=== PATIENT | female | born 1970 | race Caucasian/White ===

== ENCOUNTER 2019-04-20 18:30 | Inpatient (IN) | payer BC ==
[~2019-04-20] VITALS: Ht 172.7 cm; Wt 98.4 kg
--- NOTE | 2019-04-20 18:30 | NUR ---
PT BIBA BLS TO ER BED 03
[2019-04-20 18:43] VITALS: BP 160/95
--- NOTE | 2019-04-20 18:55 | NUR ---
PT DENIES SHORTNESS OF BREATH AND REFUSES TO USE OXYGEN. O2 SATS 98% AT THIS TIME.
--- NOTE | 2019-04-20 18:56 | NUR ---
PT BIBA FROM URGENT CARE C/O MIDSTERNAL PRESSURE PAIN. PT REPORTS PAIN SUBSIDED 30MIN AGO, CP STARTED WHILE GARDENING AND LASTED ABOUT 2 HOURS, AND WAS ACCOMPANIED BY NAUSEA. DENIES SOB. DENIES VOMITING OR DIARRHEA; SKIN IS PINK/WARM/DRY; AAOX4 WITH EVEN AND STEADY GAIT; HR EVEN AND REGULAR; PT DENIES ANY FEVER, CP, SOB, OR COUGH AT THIS TIME; PATIENT STATES PAIN OF 0/10 AT THIS TIME; VSS; PATIENT POSITIONED FOR COMFORT; HOB ELEVATED; BEDRAILS UP X2; BED DOWN. ER MD MADE AWARE OF PT STATUS.
[2019-04-20 19:11] LABS: BASOPHILS % (AUTO) 0.6 % (0.0-2.0); EOSINOPHILS % (AUTO) 0.4 % (0.0-4.0); HEMATOCRIT 47.2 % (36-48); HEMOGLOBIN 16.1 g/dL (12.0-16.0); LYMPHOCYTES # (AUTO) 1.6 K/uL (2.5-16.5); LYMPHOCYTES % (AUTO) 25.3 % (20.5-51.1); MEAN CORPUSCULAR HEMOGLOBIN 30 pg (27-31); MEAN CORPUSCULAR HGB CONC 34 g/dL (33-37); MEAN CORPUSCULAR VOLUME 88.7 fL (80-94); MONOCYTES # (AUTO) 0.5 K/uL (0.8-1.0); MONOCYTES % (AUTO) 8.5 % (1.7-9.3); NEUTROPHILS # (AUTO) 4.2 K/uL (1.8-7.7); NEUTROPHILS % (AUTO) 65.2 % (42.2-75.2); PLATELET COUNT (AUTO) 237 K/uL (140-450); RED BLOOD CELL COUNT(AUTO) 5.32 MIL/uL (4.20-5.40); RED CELL DISTRIBUTION WIDTH 13.1 % (11.6-13.7); WHITE BLOOD COUNT (AUTO) 6.5 K/uL (4.8-10.8)
--- NOTE | 2019-04-20 19:12 | NUR ---
DR. ORTA AT BEDSIDE.
--- NOTE | 2019-04-20 19:20 | NUR ---
PT STATES SHE HAS A 2/10 PRESSURE HEADACHE.
[2019-04-20 19:22] LABS: BARBITURATE, URINE NEG. ng/ml (NEG <=200); BENZODIAZEPINE, URINE NEG. ng/mL (NEG <=200); CANNABINOID, URINE NEG. ng/mL (NEG <=50); COCAINE, URINE NEG. ng/mL (NEG <=300); OPIATE, URINE NEG. ng/mL (NEG <=2000); PHENCYCLIDINE SCREEN,URINE NEG. ng/mL (NEG <=25)
[2019-04-20 19:28] LABS: PROTHROMBIN TIME 9.3 secs (10.8-13.4)
[2019-04-20] MEDS ORDERED: ASPIRIN 325 MG TAB PO ONE (19:30)
[2019-04-20] MEDS ORDERED: NACL 0.9% 1,000 ML IV ONE (19:30)
[2019-04-20 19:34] LABS: MAGNESIUM 1.9 mg/dL (1.8-2.4)
--- NOTE | 2019-04-20 20:05 | NUR ---
Critical lab results: Troponin 10.631; Glucose 456. MADE AWARE.
--- NOTE | 2019-04-20 20:05 | NUR ---
Oniel marquis in ED - 04/20/19 at 2010 by MED Critical lab results: Troponin 10.721; Glucose 456.
[2019-04-20 20:06] LABS: ANION GAP 12.4 (8-16); CARBON DIOXIDE 27.5 mmol/L (21-32); POTASSIUM 3.9 mmol/L (3.5-5.1)
[2019-04-20 20:07] LABS: CREATININE 0.9 mg/dL (0.6-1.3); TOTAL BILIRUBIN 0.5 mg/dL (0.0-1.0)
[2019-04-20 20:08] LABS: ALBUMIN 3.8 g/dL (3.4-5.0)
[2019-04-20 20:15] LABS: D-DIMER < 100 ng/ml (0-400)
--- NOTE | 2019-04-20 20:20 | NUR ---
EKG PERFORMED AT BEDSIDE
[2019-04-20] MEDS ORDERED: hePARIN / DEXT 5% PREMIX 250 ML IV ONE (20:30)
[2019-04-20] MEDS ORDERED: HEPARIN PER PHARMACY MC STA (20:30)
[2019-04-20] MEDS ORDERED: DOCUSATE SODIUM 100 MG GELCAP PO PRN (20:35)
[2019-04-20] MEDS ORDERED: ZOLPIDEM 5 MG TAB PO PRN (20:35)
[2019-04-20] MEDS ORDERED: ONDANSETRON 4 MG/2 ML VIAL IM/IVP PRN (20:35)
[2019-04-20] MEDS ORDERED: HYDROcodone/APAP 5/325 MG 1 TAB TAB PO PRN (20:35)
[2019-04-20] MEDS ORDERED: MORPHINE SULFATE 2 MG/ML SYR IVP PRN (20:35)
[2019-04-20 20:55] LABS: APPEARANCE,URINE CLEAR (CLEAR); BILIRUBIN,URINE NEGATIVE (NEGATIVE); BLOOD, URINE 1+ (NEGATIVE); COLOR,URINE YELLOW (YELLOW); LEUKOCYTE ESTERASE ,URINE NEGATIVE (NEGATIVE); NITRITE, URINE NEGATIVE (NEGATIVE); UGLUCOSE 3+ (NEGATIVE)
[2019-04-20 21:10] LABS: WBC,URINE 0-5 /HPF (0-5)
[2019-04-20 21:11] LABS: RBC,URINE >20 (MANY) /HPF (0-5)
[2019-04-20 21:12] LABS: CHOL/HDL RATIO 8.8 (1-4.5); MAGNESIUM 1.9 mg/dL (1.8-2.4); PHOSPHORUS 4.2 mg/dL (2.5-4.9); THYROID STIMULATING HORMONE 4.45 uIU/mL (0.34-3.74)
[2019-04-20] MEDS ORDERED: DEXTROSE 50% 50 ML SYR IVP PRN (21:15)
[2019-04-20] MEDS ORDERED: NITROGLYCERIN 0.4 MG TAB SL PRN (21:15)
--- NOTE | 2019-04-20 21:20 | NUR ---
Patient will be admitted to care of chest pain and evalated Troponin 10.631. Admited to Telemetry. Will go to room 119B. Belongings list completed. Report to MELI Little.
--- NOTE | 2019-04-20 21:20 | NUR ---
RECEIVED REPORT FROM ER NURSE. PT AWAKE, ALERT AND ORIENTED X4. ABLE TO VERBALIZE NEEDS. PT HAS RIGHT A/C 20 G INTACT AND PATENT. PT ABLE TO AMBULATE FROM GURNEY TO BED. PT GAIT STEADY. NO C/O CHEST PAIN OR DISCOMFORT. BREATHING EQUAL AND UNLABORED. SAFETY PRECAUTIONS IN PLACE. PT ORIENTED ON HOW TO USE CALL LIGHT. CALL LIGHT WITHIN REACH.
[2019-04-20] MEDS ORDERED: ATORVASTATIN 20 MG TAB PO ONE (21:25)
[2019-04-20] MEDS ORDERED: METOPROLOL 25 MG TAB PO ONE (21:30)
[2019-04-20] MEDS ORDERED: metFORMIN 850 MG TAB PO ONE (21:30)
--- NOTE | 2019-04-20 22:15 | NUR ---
CALLED PHARMACY AT [facility] REGARDING PTS HEPARIN ORDERS. INFORMED THAT ORDERS WERE FROM ER AND WOULD NEED NEW ORDERS FROM INPATIENT. RESIDENT MD INFORMED.
[2019-04-20] MEDS ORDERED: HEPARIN PER PHARMACY MC PRN (22:20)
[2019-04-20] MEDS ORDERED: hePARIN / DEXT 5% PREMIX 250 ML IV SCH (22:20)
[2019-04-20] MEDS: NACL 0.9% 1,000 ML IV SCH (22:28)
[2019-04-20] MEDS: hePARIN / DEXT 5% PREMIX 250 ML IV SCH (23:06)
--- NOTE | 2019-04-20 23:06 | NUR ---
HEPARIN STARTED PER ORDERS
[2019-04-20] MEDS: ACETAMINOPHEN 325 MG TAB PO PRN (23:28)
[2019-04-21] VITALS: BP 133/82
--- NOTE | 2019-04-21 01:00 | NUR ---
ROUNDED ON PT. PT SLEEPING, NO VISIBLE SIGNS OF DISTRESS. BREATHING EQUAL AND UNLABORED. CALL LIGHT WITHIN REACH.
[2019-04-21] MEDS: INSULIN LISPRO SLIDING SCALE 100 UNITS/ML VIAL SUBQ PRN ×2 (02:48→05:49)
--- NOTE | 2019-04-21 02:48 | NUR ---
PT C/O DRY MOUTH. BLOOD GLUCOSE TAKEN 272 AT THIS TIME. MEDICATED WITH 6UNITS INSULIN PER ORDERS
[2019-04-21 05:36] LABS: PROTHROMBIN TIME 9.8 secs (10.8-13.4)
[2019-04-21 06:15] LABS: CHOL/HDL RATIO 8.6 (1-4.5)
[2019-04-21 06:16] LABS: ANION GAP 12.1 (8-16); CARBON DIOXIDE 24.5 mmol/L (21-32); CREATININE 0.8 mg/dL (0.6-1.3); POTASSIUM 3.6 mmol/L (3.5-5.1)
[2019-04-21] MEDS: hePARIN / DEXT 5% PREMIX 250 ML IV SCH (06:38)
[2019-04-21] MEDS: NACL 0.9% 1,000 ML IV SCH (06:45)
[2019-04-21] MEDS: BLOOD GLUCOSE MONITORING 1 DEV DEV FS SCH ×2 (06:46→12:23)
--- NOTE | 2019-04-21 07:35 | NUR ---
PATIENT RESTING IN BED, ABDOMINAL ULTRASOUND JUST FINISHED. PATIENT ALERT AND ORIENTED, WITH CLEAR SPEECH AND NO SIGNS OF DISTRESS ON RA. PATIENT RECEIVING HEPARIN DRIP TO RIGHT HAND 22 GAUGE CATHETER. SITE IS CLEAR OF SIGNS OF INFILTRATION OR IRRITATION. DRESSING CLEAN DRY AND INTACT. NO SIGNS OF BLEEDING. NORMAL SALINE RUNNING AT 100 ML AND HOUR TO RIGHT AC 20 GAUGE. SAFETY PRECAUTIONS ARE IN PLACE, CALL LIGHT WITHIN REACH. PATIENT UPDATED ON PLAN OF CARE. PATIENT C/O 4/10 JAW AND HEAD PAIN. WILL MEDICATE WITH TYLENOL.
[2019-04-21 08:00] VITALS: BP 129/84
[2019-04-21] MEDS ORDERED: metFORMIN 850 MG TAB PO SCH (08:00)
[2019-04-21] MEDS ORDERED: METOPROLOL 25 MG TAB PO SCH (09:00)
[2019-04-21] MEDS ORDERED: ECOTRIN 81 MG TABEC PO SCH (09:00)
[2019-04-21] MEDS ORDERED: ATORVASTATIN 20 MG TAB PO SCH (09:00)
[2019-04-21] MEDS ORDERED: LISINOPRIL 5 MG TAB PO SCH (09:00)
--- NOTE | 2019-04-21 09:00 | NUR ---
ADMINISTERED SCHEDULED MEDICATIONS. HELD METFORMIN DUE TO PENDING CARDIAC CATHETERIZATION SCHEDULED FOR TODAY AT RECEIVING FACILITY. PATIENT TO BE TRANSFERRED TO [facility], [place]. VITALS STABLE. NO SIGNS OF DISTRESS ON RA. PATIENT C/O 2/[address] DIAZ. ADMINISTERED 1MG MORPHINE IV PER DOCTOR ORDERS FOR CHEST PAIN. PATIENT C/O 4/10 HEADACHE BUT WILL WAIT TO SEE IF THE PAIN SUBSIDES AFTER THE MORPHINE ADMINISTRATION.
--- NOTE | 2019-04-21 09:00 | NUR ---
ADMINISTERED SCHEDULED MEDICATIONS WITH THE EXCEPTION OF METFORMIN. METFORMIN HELD. PATIENT PENDING TRANSFER TO [facility] FOR CARDIAC CATHETERIZATION. ADMINISTERED 1MG MORPHINE IV FOR CHEST PAIN 12/21, ONE TIME DOSE ORDERED BY DR. GRIGSBY. PATIENT TOLERATED MEDICATIONS WELL.
[2019-04-21] MEDS ORDERED: MORPHINE SULFATE 2 MG/ML SYR IVP SCH (09:01)
--- NOTE | 2019-04-21 09:16 | NUR ---
PATIENT HAS BEEN SCREENED AND CATEGORIZED MODERATE NUTRITION RISK. PATIENT WILL BE SEEN WITHIN 3-5 DAYS OF ADMISSION. 04/23/[address]
[2019-04-21] MEDS ORDERED: ATOR20TA40 PO (10:15)
[2019-04-21] MEDS ORDERED: METO25TA PO (10:15)
--- NOTE | 2019-04-21 10:30 | NUR ---
CALLED [facility] [phone] SPOKE WITH THE CM SAMANTHA BARAJAS NOTIFIED THAT PT NEEDS TO GO TO [facility] FOR CARDIAC CATH. FAXED ALL REQUEST AND INFO TO FAX # [phone] PER SAMANTHA WILL CALL AND GIVE AUTH # TO [facility]. CALLED [employer] SPOKE WITH [employer] AND NOTIFIED THAT PATIENT WILL BE COMING FOR CARDIAC CATH PER [facility] PT CAN CAME ANY TIME AUTH# FOR TRANSPORT [id number]. CALLED [facility] AND ARRANGED TRANSPORT EQUIPMENT MONITOR PHOTOTYPESETTING TIME ANY TIME. AND NOTIFIED SOLANGE GARRISON.
[2019-04-21 10:37] LABS: BASOPHILS % (AUTO) 0.4 % (0.0-2.0); EOSINOPHILS # (AUTO) 0.1 K/uL (0-0.4); EOSINOPHILS % (AUTO) 0.9 % (0.0-4.0); HEMATOCRIT 42.4 % (36-48); LYMPHOCYTES # (AUTO) 3.2 K/uL (2.5-16.5); MEAN CORPUSCULAR HEMOGLOBIN 30 pg (27-31); MEAN CORPUSCULAR HGB CONC 33 g/dL (33-37); MEAN CORPUSCULAR VOLUME 91.1 fL (80-94); MONOCYTES # (AUTO) 0.5 K/uL (0.8-1.0); MONOCYTES % (AUTO) 7.3 % (1.7-9.3); NEUTROPHILS # (AUTO) 3.3 K/uL (1.8-7.7); NEUTROPHILS % (AUTO) 46.4 % (42.2-75.2); PLATELET COUNT (AUTO) 218 K/uL (140-450); RED BLOOD CELL COUNT(AUTO) 4.66 MIL/uL (4.20-5.40); RED CELL DISTRIBUTION WIDTH 13.3 % (11.6-13.7); WHITE BLOOD COUNT (AUTO) 7.2 K/uL (4.8-10.8)
[2019-04-21 10:45] VITALS: BP 129/84
[2019-04-21 11:07] VITALS: BP 116/73
--- NOTE | 2019-04-21 11:30 | NUR ---
GAVE REPORT TO MELI SALEEM IN [facility] AT [facility]. DR. ANTUNEZ IS ACCEPTING PHYSICIAN. PATIENT STABLE FOR TRANSFER. PATIENT HAS RIGHT AC 20 GAUGE IV CATHETER, FLUSHING WELL AND RIGHT WRIST 22 GAUGE IV CATHETER ALSO FLUSHING WELL. RECEIVING HOSPITAL PREFERS THOSE TO REMAIN INSERTED. VITALS STABLE. PATIENT C/O HEAD AND TOOTH ACHE 4/10 RELATED TO PRE-EXISTING DENTAL CONDITION. WILL MEDICATE WITH TYLENOL PRIOR TO DISCHARGE. PATIENT IS AMBULATORY BUT WILL BE TRANSFERRED VIA GURNEY VIA [facility] FOR CARDIAC MONITORING IN TRANSIT. PATIENT HAS HEPARIN DRIP RUNNING TO RIGHT WRIST 22 GAUGE WHICH WILL BE DISCONTINUED AT DISCHARGE. RECEIVING HOSPITAL AWARE OF HEPARIN DRIP AND ALL MEDICATIONS GIVEN TODAY.
[2019-04-21] MEDS: ACETAMINOPHEN 325 MG TAB PO PRN (12:23)
--- NOTE | 2019-04-21 13:00 | NUR ---
CALLED [facility], SPOKE TO MELI SOLANO. INFORMED HER THAT PATIENT HAD AN ELEVATED GLUCOSE OF 297 BUT NO INSULIN WAS GIVEN PATIENT WAS IN PROCESS OF DISCHARGE. SLIM EMT WITH [facility] AWARE OF GLUCOSE LEVEL.
== END 2019-04-21 12:30 | disposition short-term general hospital (02) | DRG 281 ==
LOC: MED 18:30 → MTU 21:00
PROVIDERS: ADMIT General Practice; ATTEND General Practice
DX: I21.4 Non-ST elevation (NSTEMI) myocardial infarction (principal); N39.0 Urinary tract infection, site not specified; E87.1 Hypo-osmolality and hyponatremia; E11.65 Type 2 diabetes mellitus with hyperglycemia; E66.9 Obesity, unspecified; K76.0 Fatty (change of) liver, not elsewhere classified; E78.2 Mixed hyperlipidemia; Z83.3 Family history of diabetes mellitus; Z68.33 Body mass index [BMI] 33.0-33.9, adult; Z82.49 Family history of ischemic heart disease and other diseases of the circulatory system
CPT/HCPCS: 36415; 71045; 76700; 80048; 80053; 80305; 81001; 82150; 82948; 83036; 83690; 83735; 83880; 84100; 84134; 84436; 84443; 84484; 85025; 85379; 85610; 85730; 87081; 93005; 96374; 99291; G0482; J1644; J1815; J2270; J7030; Q0092